=== PATIENT | male | born 1990 | race African-American/Black ===

== ENCOUNTER 2017-03-09 18:47 | Emergency (ER) | payer MEDICAID ==
[2017-03-09 18:58] VITALS: BP 155/89; PULSE 78; RESP 16; TEMP 97.7; O2SAT 98
--- NOTE | 2017-03-09 19:10 | EDPHY ---
H & P Time Seen by Provider: 03/09/17 19:07 HPI/ROS: CHIEF COMPLAINT: Right knee injury HISTORY OF PRESENT ILLNESS: This patient is a 26 year old male with a history of multiple ligamentous injuries to his right knee who presents to the Emergency Department following an acute injury to his right knee obtained yesterday when playing basketball. He reports that he did a pivot move and heard a "pop" followed by immediate pain and swelling to the joint. Yesterday evening, he developed ecchymosis and swelling to his right calf. He denies any additional injuries or complaints. He has previously seen Dr. Lopez for orthopedic injuries. ROS: No numbness, weakness, excessive bleeding, syncopal episode, other injury. Past Medical/Surgical History: Multiple injuries to the ligaments of his right knee, unspecified. Social History: Played basketball in college, now plays recreationally Smoking Status: Never smoked Physical Exam: Alert and oriented x3, no acute distress Right lower extremity: Tenderness, swelling, and ecchymosis to the lateral aspect of the right calf; moderate join effusion; no tenderness on the medial or lateral join lines; laxity with valgus stress; positive anterior drawer sign. Skin: Ecchymosis to the right calf Neuro: Motor and sensory intact Vascular: Capillary refill brisk distally Constitutional: Initial Vital Signs Temperature (C) 36.5 C 03/09/17 18:56 Heart Rate 78 03/09/17 18:56 Respiratory Rate 16 03/09/17 18:56 Blood Pressure 155/89 H 03/09/17 18:56 O2 Sat (%) 98 03/09/17 18:56 O2 Delivery Mode Room Air Allergies/Adverse Reactions: No Known Allergies Allergy (Unverified 02/24/11 10:14) Home Medications: Medication Instructions Recorded Ibuprofen [Motrin (*)] 600 mg PO Q6PRN PRN #20 tab 02/24/11 Medical Decision Making ED Course/Re-evaluation: This 26 year old male with history of multiple ligamentous injuries to his right knee presents with an acute injury obtained when pivoting during a basketball game yesterday. He has a moderate joint diffusion on exam with swelling and ecchymosis to the lateral aspect of his right lower leg. c/w ligamentous injury. He has no additional injuries. He will be placed in a knee immobilizer, given Ibuprofen instructions, and instructed to follow-up with Dr. Lopez, who he has seen for his prior injuries. He is agreeable to this and discharged home in good condition. Departure - Departure Disposition: Home, Routine, Self-Care Clinical Impression: Knee injury Qualifiers: Encounter type: initial encounter Laterality: right Qualified Code(s): S89.91XA - Unspecified injury of right lower leg, initial encounter Condition: Good Instructions: Swollen Knee Joint (ED), Knee Immobilizer (ED) Additional Instructions: 1. Take 600mg Ibuprofen every 6 hours as needed for pain. 2. Wear your knee immobilizer until follow-up with Dr. Lopez. 3. Call to schedule a follow-up appointment with Dr. Lopez as soon as possible to evaluate your injury. 4. Return to the Emergency Department if you experience worsening pain or swelling, numbness or tingling to your foot or toes, or other serious concerns. Referrals: Tiffany Lopez MD [Medical Doctor] - As per Instructions Report Scribed for: Ramona Payton Report Scribed by: Michelle Jones Date of Report: 03/09/17 Time of Report: 19:09
== END 2017-03-09 19:30 | disposition home or self-care (01) ==
DX: S89.91XA Unspecified injury of right lower leg, initial encounter (principal); X50.1XXA Overexertion from prolonged static or awkward postures, initial encounter; Y99.8 Other external cause status; Y93.67 Activity, basketball
CPT/HCPCS: L1830